=== PATIENT | female | born 1990 | race Caucasian/White ===

== ENCOUNTER 2017-02-13 00:52 | Inpatient (IN) | payer MEDICAID, OTHER ==
[~2017-02-13] VITALS: Ht 172.7 cm; Wt 73.9 kg
[2017-02-13] MEDS ORDERED: SODIUM CHLORIDE 0.9% 1,000 ML IV ONE (01:30)
[2017-02-13 01:35] LABS: Basophils # (auto) 0 uL; Basophils % (auto) 0.6 % (0.0-2.0); Eosinophils # (auto) 0 uL; Eosinophils % (auto) 0.4 % (0.0-7.0); Hematocrit 38.6 % (36.0-46.0); Hemoglobin 13.1 g/dL (12.2-16.2); Lymphocytes # (auto) 1.1 uL; Lymphocytes % (auto) 15.9 % (10.0-50.0); Mean Corpuscular Hemoglobin 32.9 pg (28.0-32.0); Mean Corpuscular Hgb Conc. 33.9 g/dL (32.0-36.0); Mean Corpuscular Volume 97.1 fL (80.0-100.0); Mean Platelet Volume 8.4 fL (7.4-10.4); Monocytes # (auto) 0.4 uL; Monocytes % (auto) 5.8 % (0.0-12.0); Neutrophils # (auto) 5.2 uL; Neutrophils % (auto) 77.3 % (37.0-80.0); Platelet Count (auto) 179 10^3/uL (140-450); Red Cell Distribution Width 16.3 % (11.6-16.0); White Blood Cell 6.8 10^3/uL (4.4-10.8)
[2017-02-13 01:52] LABS: Albumin 3.8 g/dL (3.4-5.0); BUN/Creatinine Ratio 20.3; Calcium 8.7 mg/dL (8.5-10.1); Magnesium 1.9 mg/dL (1.6-2.6); Potassium 3.7 mmol/L (3.5-5.1)
[2017-02-13 01:55] LABS: Bilirubin, Total 0.6 mg/dL (0.2-1.0); Total Protein 7.7 g/dL (6.4-8.2)
[2017-02-13] MEDS ORDERED: LORazepam 2MG/ML-1ML VIAL ONE (05:30)
[2017-02-13] MEDS ORDERED: LORazepam 2MG/ML-1ML VIAL IV ONE (05:45)
[2017-02-13] MEDS ORDERED: ACETAMINOPHEN 325 MG TAB PO PRN (07:15)
[2017-02-13] MEDS ORDERED: ONDANSETRON HCL 4 MG/2 ML VIAL IV PRN (07:15)
[2017-02-13] MEDS ORDERED: NITROGLYCERIN 0.4 MG SL TAB SL PRN (07:15)
[2017-02-13] MEDS ORDERED: LORazepam 2MG/ML-1ML VIAL IV PRN ×2 (07:15→15:30)
[2017-02-13] MEDS ORDERED: MORPHINE SULF INJ 2 MG/ML SYRINGE 1ML IV PRN (07:15)
[2017-02-13] MEDS ORDERED: TEMAZEPAM 15 MG CAP PO PRN (07:15)
[2017-02-13] MEDS: LEVETIRACETAM 500 MG TAB PO SCH ×2 (10:21→21:30)
[2017-02-13] MEDS: FAMOTIDINE 20 MG TAB PO SCH ×2 (10:21→21:29)
[2017-02-13 12:30] VITALS: BP 88/52
[2017-02-13 12:33] VITALS: BP 112/74
[2017-02-13] MEDS: HYDROcodone-ACET 5/325MG TAB PO PRN ×3 (13:56→23:46)
[2017-02-13 16:29] VITALS: BP 106/72
[2017-02-13 22:00] VITALS: BP 113/72
[2017-02-14 05:00] VITALS: BP 97/54
[2017-02-14] MEDS: HYDROcodone-ACET 5/325MG TAB PO PRN ×3 (09:16→17:55)
[2017-02-14 09:28] VITALS: BP 89/53
[2017-02-14] MEDS: FAMOTIDINE 20 MG TAB PO SCH (10:09)
[2017-02-14] MEDS: LEVETIRACETAM 500 MG TAB PO SCH (10:09)
[2017-02-14 17:04] VITALS: BP 105/65
[2017-02-14 17:30] VITALS: BP 103/66
== END 2017-02-14 18:55 | disposition home or self-care (01) | DRG 53 ==
LOC: EDBD 00:52 → ER 00:57 → TELE 00:58 → TELE-CENTR 10:06
PROVIDERS: ADMIT Nurse Practitioner; ATTEND Internal Medicine Pulmonary Disease
DX: G40.909 Epilepsy, unspecified, not intractable, without status epilepticus (principal); F10.20 Alcohol dependence, uncomplicated; F12.90 Cannabis use, unspecified, uncomplicated; Y90.9 Presence of alcohol in blood, level not specified; T42.0X5A Adverse effect of hydantoin derivatives, initial encounter; Z79.899 Other long term (current) drug therapy; Z91.19 Patient's noncompliance with other medical treatment and regimen; Z80.9 Family history of malignant neoplasm, unspecified; Z81.1 Family history of alcohol abuse and dependence; Y92.89 Other specified places as the place of occurrence of the external cause
CPT/HCPCS: 36415; 70450; 70551; 80053; 80307; 81025; 83735; 85025; 95819; 96361; 96374; 96375

== ENCOUNTER 2017-12-07 00:37 | Emergency (ER) | payer SELFPAY ==
[~2017-12-07] VITALS: Ht 167.6 cm; Wt 68.0 kg
[2017-12-07 01:44] LABS: Hematocrit 45.7 % (36.0-46.0); Hemoglobin 15.8 g/dL (12.2-16.2); Mean Corpuscular Hemoglobin 30.5 pg (28.0-32.0); Mean Corpuscular Hgb Conc. 34.5 g/dL (32.0-36.0); Mean Corpuscular Volume 88.5 fL (80.0-100.0); Platelet Count (auto) 300 10^3/uL (140-450); Red Blood Cells 5.17 10^6/uL (4.0-5.20); Red Cell Distribution Width 13.7 % (11.8-14.3)
[2017-12-07 01:47] LABS: Basophils % (manual) 0 (0.0-2.0); Blast Cells 0; Metamyelocytes % 0; Myelocytes % 0; Promyelocytes % 0; Reactive Lymphocytes 0
[2017-12-07 02:03] LABS: Amphetamine Screen, Urine NEGATIVE (NEGATIVE); Barbiturate Scree,Urine NEGATIVE (NEGATIVE); Benzodiazephine Screen, Urine NEGATIVE (NEGATIVE); Cannabinoid Screen, Urine NEGATIVE (NEGATIVE); Cocaine Screen, Urine NEGATIVE (NEGATIVE); Opiate Scree,Urine NEGATIVE (NEGATIVE); Phencyclidine Screen, Urine NEGATIVE (NEGATIVE)
[2017-12-07 02:03] LABS: Albumin 3.8 g/dL (3.4-5.0); BUN/Creatinine Ratio 25.3; Calcium 8.2 mg/dL (8.5-10.1); Potassium 3.9 mmol/L (3.5-5.1)
[2017-12-07 02:07] LABS: Bilirubin, Total 1.3 mg/dL (0.2-1.0); Total Protein 8.4 g/dL (6.4-8.2)
[2017-12-07 02:28] LABS: Band Neutrophils % (manual) 1; Eosinophils % (manual) 1 (0-7); Lymphocytes % (manual) 55 (10.0-50.0); Monocytes % (manual) 3 (0-12)
[2017-12-07] MEDS ORDERED: LORazepam 2MG/ML-1ML VIAL IV ONE (08:00)
[2017-12-07] MEDS ORDERED: PHENYTOIN SODIUM 100 MG CAP PO ONE (08:00)
[2017-12-07 13:08] VITALS: BP 111/64
[2017-12-07] MEDS: PHENYTOIN SODIUM 100 MG CAP PO ONE ×3 (13:12→13:22)
== END 2017-12-07 12:20 | disposition home or self-care (01) ==
LOC: EDBD 00:37 → ER 00:43
DX: G40.909 Epilepsy, unspecified, not intractable, without status epilepticus (principal); F10.10 Alcohol abuse, uncomplicated; R53.1 Weakness; Z79.899 Other long term (current) drug therapy
CPT/HCPCS: 36415; 70450; 80053; 80185; 80307; 80320; 84702; 85007; 85027; 96374; 99285; J2060